=== PATIENT | female | born 1990 | race Caucasian/White ===

== ENCOUNTER 2019-01-06 20:07 | Inpatient (IN) | payer OTHER ==
[2019-01-06] MEDS ORDERED: SODIUM CHLORIDE 0.9% 1,000 ML IV STA (20:44)
[2019-01-06 21:34] LABS: Glucose,Whole Blood 99 mg/dL (75-99)
[2019-01-06 21:51] LABS: Basophils % (A) 0 %; Eosinophils # (A) 0.1 k/uL (0-0.7); Eosinophils % (A) 2 %; HCT 36.6 % (34.0-46.0); HGB 11.8 gm/dL (11.4-16.0); Lymphocytes # (A) 1.1 k/uL (1.0-4.8); Lymphocytes % (A) 14 %; MCH 29.8 pg (25.0-35.0); MCHC 32.4 g/dL (31.0-37.0); MCV 92.2 fL (80.0-100.0); Mean Platelet Volume 7.2; Monocytes # (A) 0.5 k/uL (0-1.0); Monocytes % (A) 7 %; Neutrophils # (A) 5.7 k/uL (1.3-7.7); Neutrophils % (A) 76 %; Platelet Count 217 k/uL (150-450); RBC 3.97 m/uL (3.80-5.40); RDW 13.3 % (11.5-15.5); WBC 7.5 k/uL (3.8-10.6)
[2019-01-06 21:52] LABS: ALT 17 U/L (9-52); AST 25 U/L (14-36); Acetaminophen <10.0 ug/mL; African American GFR (CKD) >90 (>60 ml/min/1.73 sqM); Albumin 4.1 g/dL (3.5-5.0); Alkaline Phosphatase 77 U/L (38-126); Anion Gap 10 mmol/L; Blood Urea Nitrogen 9 mg/dL (7-17); Carbon Dioxide 22 mmol/L (22-30); Chloride 107 mmol/L (98-107); Glucose 102 mg/dL (74-99); Salicylate <1.0 mg/dL; Sodium 139 mmol/L (137-145); Total Bilirubin 0.2 mg/dL (0.2-1.3); Total Protein 6.9 g/dL (6.3-8.2)
[2019-01-06 23:39] LABS: Appearance,Urine Clear (Clear); Bilirubin,Urine Negative (Negative); Blood,Urine Negative (Negative); Color,Urine Colorless; Glucose,Urine (UA) Negative (Negative); Ketones,Urine Negative (Negative); Leukocyte Esterase,Urine Negative (Negative); Nitrite,Urine Negative (Negative); PH, Urine 6.5 (5.0-8.0); Protein,Urine Negative (Negative); Specific Gravity,Urine 1.003 (1.001-1.035); Urobilinogen,Urine <2.0 mg/dL (<2.0)
[2019-01-07 00:12] LABS: Amphetamine Screen,Urine Not Detected (NotDetected); Barbiturate Screen,Urine Not Detected (NotDetected); Benzodiazepines Screen,Urine Not Detected (NotDetected); Cocaine Screen,Urine Not Detected (NotDetected); Methadone Screen, Urine Not Detected (NotDetected); Opiate Screen,Urine Not Detected (NotDetected); Oxycodone Screen, Urine Not Detected (NotDetected); Phencyclidine Screen,Urine Not Detected (NotDetected); Tricyclic Antidepressant,Urine Not Detected (NotDetected); Urn Cannabinoid Scrn Not Detected (NotDetected)
--- NOTE | 2019-01-07 00:31 | ED ---
General Adult HPI - General Chief complaint: Psychiatric Symptoms Stated complaint: Altered Mental Time Seen by Provider: 01/06/19 20:24 Source: patient, EMS, RN notes reviewed, old records reviewed Mode of arrival: EMS Limitations: no limitations - History of Present Illness Initial comments: 28-year-old female patient past medical history of gets affective disorder presents ED after reports of acting erratically. Patient reportedly attempting to cross the border while driving, border patrol stated that she was not acting appropriately. Patient states that she was driving from [place] to visit her family in [facility]. Unable to corroborate this story. She takes Haldol and in the injections. Patient states that she has been taking her medications appropriately. Patient stated that she is asymptomatic this time. Denies a chest pain shortness breath abdominal pain and headache, changes in vision, nausea vomiting or diarrhea. Denies other complaints. Systemic: Pt denies fatigue, fever/chills, rash. Pt denies weakness, night sweats, weight loss. Neuro: Pt denies headache, visual disturbances, syncope or pre-syncope. HEENT: Pt denies ocular discharge or irritation, otalgia, rhinorrhea, pharyngitis or notable lymphadenopathy. Cardiopulmonary: Pt denies chest pain, SOB, heart palpitations, dyspnea on exertion. Abdominal/GI: Pt denies abdominal pain, n/v/d. : Pt denies dysuria, burning w/ urination, frequency/urgency. Denies new onset urinary or bowel incontinence. MSK: Pt denies myalgia, loss of strength or function in extremities. Neuro: Pt denies new onset weakness, paresthesias. - Related Data Home Medications Medication Instructions Recorded Confirmed Haloperidol [Haldol] 2.5 mg PO DAILY 01/06/19 01/06/19 Invega Sustenna(Unknown) 1 dose IM DIRECTED 01/06/19 01/06/19 cloZAPine [Clozapine Odt] 150 mg PO BID 01/06/19 01/06/19 clonazePAM [KlonoPIN] 0.5 mg PO BID 01/06/19 01/06/19 Allergies Allergy/AdvReac Type Severity Reaction Status Date / Time clozapine [From Clozaril] Allergy Unknown Verified 01/06/19 22:55 divalproex sodium Allergy Anaphylaxis Verified 01/06/19 22:55 [From Depakote] Review of Systems ROS Statement: Those systems with pertinent positive or pertinent negative responses have been documented in the HPI. ROS Other: All systems not noted in ROS Statement are negative. Past Medical History Past Medical History: No Reported History History of Any Multi-Drug Resistant Organisms: None Reported Past Surgical History: Orthopedic Surgery Additional Past Surgical History / Comment(s): (R) hand surgery Past Psychological History: Anxiety, Schizophrenia Smoking Status: Current every day smoker Past Alcohol Use History: None Reported Past Drug Use History: None Reported General Exam - General Exam Comments Initial Comments: Constitutional: NAD, AOX3, Pt has pleasant affect. HEENT: NC/AT, trachea midline, neck supple, no lymphadenopathy. Posterior pharynx non erythematous, without exudates. External ears appear normal, without discharge. Mucous membranes moist. Eyes PERRLA, EOM intact. There is no scleral icterus. No pallor noted. Cardiopulmonary: RRR, no murmurs, rubs or gallops, no JVD noted. Lungs CTAB in anterior and posterior eisenberg. No peripheral edema. Abdominal exam: Abdomen soft and non-distended. Abdomen non-tender to palpation in all 4 quadrants. Bowel sounds active in LLQ. No hepatosplenomegaly. No ecchymosis Neuro: CN II-XII intact. No nuchal rigidity. No raccon eyes, no jurado sign, no hemotympanum. No cervical spinal tenderness. NIH 0. MSK: No posterior calf tenderness bilaterally, homans sign negative bilaterally. Posterior tibialis and radial pulse +2 bilaterally. Sensation intact in upper and lower extremities. Full active ROM in upper and lower extremities, 5/5 stregnth. Limitations: no limitations Course Vital Signs 01/06/19 01/06/19 01/07/19 20:23 23:30 00:46 Temperature 99.5 F 98.1 F 98.6 F Pulse Rate 111 H 118 H 98 Respiratory 16 16 16 Rate Blood Pressure 133/95 126/88 117/70 O2 Sat by Pulse 98 98 97 Oximetry Medical Decision Making - Medical Decision Making 28-year-old female patient past medical history of gets affective disorder presents ED after reports of acting erratically. Patient reportedly attempting to cross the border while driving, border patrol stated that she was not acting appropriately. Patient states that she was driving from [place] to visit her family in [facility]. Unable to corroborate this story. She takes Haldol and in the injections. Patient states that she has been taking her medications appropriately. Patient stated that she is asymptomatic this time. Denies a chest pain shortness breath abdominal pain and headache, changes in vision, na usea vomiting or diarrhea. Denies other complaints. Patient also still febrile. Physical exam demonstrates pathology. Neurologic exam within normal limits, NIH is 0. Laboratory investigations revealed an impressive CBC, CMP. UA negative, hCG negative. Toxicology screen negative. CT of brain did not display acute pathology. EKG done concerning for acute ischemia. Patient was evaluated by EPS who recommended admission. Cert performed by Dr. Correa. Pt will be signed out to attending physician Dr. Correa pending placement. - Lab Data Result diagrams: 01/06/19 21:20 01/06/19 21:20 Lab Results 01/06/19 01/06/19 01/06/19 Range/Units 21:20 21:20 21:20 WBC 7.5 (3.8-10.6) k/uL RBC 3.97 (3.80-5.40) m/uL Hgb 11.8 (11.4-16.0) gm/dL Hct 36.6 (34.0-46.0) % MCV 92.2 (80.0-100.0) fL MCH 29.8 (25.0-35.0) pg MCHC 32.4 (31.0-37.0) g/dL RDW 13.3 (11.5-15.5) % Plt Count 217 (150-450) k/uL Neutrophils % 76 % Lymphocytes % 14 % Monocytes % 7 % Eosinophils % 2 % Basophils % 0 % Neutrophils # 5.7 (1.3-7.7) k/uL Lymphocytes # 1.1 (1.0-4.8) k/uL Monocytes # 0.5 (0-1.0) k/uL Eosinophils # 0.1 (0-0.7) k/uL Basophils # 0.0 (0-0.2) k/uL Sodium 139 (137-145) mmol/L Potassium 4.0 (3.5-5.1) mmol/L Chloride 107 (98-107) mmol/L Carbon Dioxide 22 (22-30) mmol/L Anion Gap 10 mmol/L BUN 9 (7-17) mg/dL Creatinine 0.57 (0.52-1.04) mg/dL Est GFR (CKD-EPI)AfAm >90 (>60 ml/min/1.73 sqM) Est GFR (CKD-EPI)NonAf >90 (>60 ml/min/1.73 sqM) Glucose 102 H (74-99) mg/dL POC Glucose (mg/dL) (75-99) mg/dL POC Glu Retouching Operator ID Plasma Lactic Acid Paulie 0.9 (0.7-2.0) mmol/L Calcium 9.0 (8.4-10.2) mg/dL Total Bilirubin 0.2 (0.2-1.3) mg/dL AST 25 (14-36) U/L ALT 17 (9-52) U/L Alkaline Phosphatase 77 (38-126) U/L Total Protein 6.9 (6.3-8.2) g/dL Albumin 4.1 (3.5-5.0) g/dL Urine Color Urine Appearance (Clear) Urine pH (5.0-8.0) Ur Specific [place] (1.001-1.035) Urine Protein (Negative) Urine Glucose (UA) (Negative) Urine Ketones (Negative) Urine Blood (Negative) Urine Nitrite (Negative) Urine Bilirubin (Negative) Urine Urobilinogen (<2.0) mg/dL Ur Leukocyte Esterase (Negative) Urine HCG, Qual (Not Detectd) Salicylates <1.0 mg/dL Urine Opiates Screen (NotDetected) Ur Oxycodone Screen (NotDetected) Urine Methadone Screen (NotDetected) Ur Propoxyphene Screen (NotDetected) Acetaminophen <10.0 ug/mL Ur Barbiturates Screen (NotDetected) U Tricyclic Antidepress (NotDetected) Ur Phencyclidine Scrn (NotDetected) Ur Amphetamines Screen (NotDetected) U Methamphetamines Scrn (NotDetected) U Benzodiazepines Scrn (NotDetected) Urine Cocaine Screen (NotDetected) U Marijuana (THC) Screen (NotDetected) Acetone, Qual Negative (Negative) 01/06/19 01/06/19 01/06/19 Range/Units 21:32 23:10 23:10 WBC (3.8-10.6) k/uL RBC (3.80-5.40) m/uL Hgb (11.4-16.0) gm/dL Hct (34.0-46.0) % MCV (80.0-100.0) fL MCH (25.0-35.0) pg MCHC (31.0-37.0) g/dL RDW (11.5-15.5) % Plt Count (150-450) k/uL Neutrophils % % Lymphocytes % % Monocytes % % Eosinophils % % Basophils % % Neutrophils # (1.3-7.7) k/uL Lymphocytes # (1.0-4.8) k/uL Monocytes # (0-1.0) k/uL Eosinophils # (0-0.7) k/uL Basophils # (0-0.2) k/uL Sodium (137-145) mmol/L Potassium (3.5-5.1) mmol/L Chloride (98-107) mmol/L Carbon Dioxide (22-30) mmol/L Anion Gap mmol/L BUN (7-17) mg/dL Creatinine (0.52-1.04) mg/dL Est GFR (CKD-EPI)AfAm (>60 ml/min/1.73 sqM) Est GFR (CKD-EPI)NonAf (>60 ml/min/1.73 sqM) Glucose (74-99) mg/dL POC Glucose (mg/dL) 99 (75-99) mg/dL POC Glu Retouching Operator ID Gricelda Hernandez Plasma Lactic Acid Paulie (0.7-2.0) mmol/L Calcium (8.4-10.2) mg/dL Total Bilirubin (0.2-1.3) mg/dL AST (14-36) U/L ALT (9-52) U/L Alkaline Phosphatase (38-126) U/L Total Protein (6.3-8.2) g/dL Albumin (3.5-5.0) g/dL Urine Color Colorless Urine Appearance Clear (Clear) Urine pH 6.5 (5.0-8.0) Ur Specific [place] 1.003 (1.001-1.035) Urine Protein Negative (Negative) Urine Glucose (UA) Negative (Negative) Urine Ketones Negative (Negative) Urine Blood Negative (Negative) Urine Nitrite Negative (Negative) Urine Bilirubin Negative (Negative) Urine Urobilinogen <2.0 (<2.0) mg/dL Ur Leukocyte Esterase Negative (Negative) Urine HCG, Qual Not Detected (Not Detectd) Salicylates mg/dL Urine Opiates Screen Not Detected (NotDetected) Ur Oxycodone Screen Not Detected (NotDetected) Urine Methadone Screen Not Detected (NotDetected) Ur Propoxyphene Screen Not Detected (NotDetected) Acetaminophen ug/mL Ur Barbiturates Screen Not Detected (NotDetected) U Tricyclic Antidepress Not Detected (NotDetected) Ur Phencyclidine Scrn Not Detected (NotDetected) Ur Amphetamines Screen Not Detected (NotDetected) U Methamphetamines Scrn Not Detected (NotDetected) U Benzodiazepines Scrn Not Detected (NotDetected) Urine Cocaine Screen Not Detected (NotDetected) U Marijuana (THC) Screen Not Detected (NotDetected) Acetone, Qual (Negative) - EKG Data -: EKG Interpreted by Me (and Dr. Correa) EKG Comments: Ventricular rate 101, CO interval 120, QRS 76, QT/QTC 328/4.5. Sinus tach, negative for acute ischemia. Disposition Clinical Impression: Psychiatric disorder Disposition: ADMITTED IP TO THIS HOSP Condition: Fair Is patient prescribed a controlled substance at d/c from ED?: No Referrals: None,Stated [Primary Care Provider] - 1-2 days
--- NOTE | 2019-01-07 00:55 | CT ---
EXAM: CT Head Without Intravenous Contrast CLINICAL HISTORY: AMS. No chronic conditions TECHNIQUE: Axial computed tomography images of the head/brain without intravenous contrast. DLP is 1084.4 mGy-cm. This CT exam was performed using one or more of the following dose reduction techniques: automated exposure control, adjustment of the mA and/or kV according to patient size, and/or use of iterative reconstruction technique. Coronal and sagittal reconstructions are performed COMPARISON: No relevant prior studies available. FINDINGS: Brain: Unremarkable. No hemorrhage. No significant white matter disease. No edema. Ventricles: Unremarkable. No ventriculomegaly. Bones/joints: Unremarkable. No acute fracture. Soft tissues: Unremarkable. Sinuses: Unremarkable as visualized. No acute sinusitis. Mastoid air cells: Unremarkable as visualized. No mastoid effusion. IMPRESSION: Normal head/brain CT.
[2019-01-07] MEDS ORDERED: ACETAMINOPHEN TAB 325 MG TAB PO PRN (08:09)
[2019-01-07] MEDS ORDERED: MAG HYDROX/AL HYDROX/SIMETH 30 ML CUP PO PRN (08:09)
[2019-01-07] MEDS ORDERED: ZIPRASIDONE 20 MG VIAL IM PRN (08:09)
[2019-01-07] MEDS ORDERED: LORazepam 2 MG/ML INJ IV PRN (08:12)
[2019-01-07] MEDS: NICOTINE 14MG/24HR PATCH TRANSDERM SCH (08:17)
--- NOTE | 2019-01-07 11:25 | P.HP ---
Psychiatric H&P - . H&P Date: 01/07/19 History & Physical: Allergies Allergy/AdvReac Type Severity Reaction Status Date / Time clozapine [From Clozaril] Allergy Unknown Verified 01/07/19 06:22 divalproex sodium Allergy Anaphylaxis Verified 01/07/19 06:22 [From Depakote] Vital Signs Temp 98.4 F 01/07/19 05:55 Pulse 114 H 01/07/19 05:55 Resp 16 01/07/19 05:55 BP 126/80 01/07/19 05:55 Pulse Ox 97 01/07/19 05:55 Intake & Output 01/06/19 01/07/19 01/07/19 18:59 06:59 18:59 Weight 74.843 kg Laboratory Last Values WBC 7.5 k/uL (3.8-10.6) 01/06/19 21:20 RBC 3.97 m/uL (3.80-5.40) 01/06/19 21:20 Hgb 11.8 gm/dL (11.4-16.0) 01/06/19 21:20 Hct 36.6 % (34.0-46.0) 01/06/19 21:20 MCV 92.2 fL (80.0-100.0) 01/06/19 21:20 MCH 29.8 pg (25.0-35.0) 01/06/19 21:20 MCHC 32.4 g/dL (31.0-37.0) 01/06/19 21:20 RDW 13.3 % (11.5-15.5) 01/06/19 21:20 Plt Count 217 k/uL (150-450) 01/06/19 21:20 Neutrophils % 76 % 01/06/19 21:20 Lymphocytes % 14 % 01/06/19 21:20 Monocytes % 7 % 01/06/19 21:20 Eosinophils % 2 % 01/06/19 21:20 Basophils % 0 % 01/06/19 21:20 Neutrophils # 5.7 k/uL (1.3-7.7) 01/06/19 21:20 Lymphocytes # 1.1 k/uL (1.0-4.8) 01/06/19 21:20 Monocytes # 0.5 k/uL (0-1.0) 01/06/19 21:20 Eosinophils # 0.1 k/uL (0-0.7) 01/06/19 21:20 Basophils # 0.0 k/uL (0-0.2) 01/06/19 21:20 Sodium 139 mmol/L (137-145) 01/06/19 21:20 Potassium 4.0 mmol/L (3.5-5.1) 01/06/19 21:20 Chloride 107 mmol/L (98-107) 01/06/19 21:20 Carbon Dioxide 22 mmol/L (22-30) 01/06/19 21:20 Anion Gap 10 mmol/L 01/06/19 21:20 BUN 9 mg/dL (7-17) 01/06/19 21:20 Creatinine 0.57 mg/dL (0.52-1.04) 01/06/19 21:20 Est GFR (CKD-EPI)AfAm >90 (>60 ml/min/1.73 sqM) 01/06/19 21:20 Est GFR (CKD-EPI)NonAf >90 (>60 ml/min/1.73 sqM) 01/06/19 21:20 Glucose 102 mg/dL (74-99) H 01/06/19 21:20 POC Glucose (mg/dL) 99 mg/dL (75-99) 01/06/19 21:32 POC Glu User Interface Developer ID Gricelda Hernandez 01/06/19 21:32 Plasma Lactic Acid Paulie 0.9 mmol/L (0.7-2.0) 01/06/19 21:20 Calcium 9.0 mg/dL (8.4-10.2) 01/06/19 21:20 Total Bilirubin 0.2 mg/dL (0.2-1.3) 01/06/19 21:20 AST 25 U/L (14-36) 01/06/19 21:20 ALT 17 U/L (9-52) 01/06/19 21:20 Alkaline Phosphatase 77 U/L (38-126) 01/06/19 21:20 Total Protein 6.9 g/dL (6.3-8.2) 01/06/19 21:20 Albumin 4.1 g/dL (3.5-5.0) 01/06/19 21:20 Urine Color Colorless 01/06/19 23:10 Urine Appearance Clear (Clear) 01/06/19 23:10 Urine pH 6.5 (5.0-8.0) 01/06/19 23:10 Ur Specific [place] 1.003 (1.001-1.035) 01/06/19 23:10 Urine Protein Negative (Negative) 01/06/19 23:10 Urine Glucose (UA) Negative (Negative) 01/06/19 23:10 Urine Ketones Negative (Negative) 01/06/19 23:10 Urine Blood Negative (Negative) 01/06/19 23:10 Urine Nitrite Negative (Negative) 01/06/19 23:10 Urine Bilirubin Negative (Negative) 01/06/19 23:10 Urine Urobilinogen <2.0 mg/dL (<2.0) 01/06/19 23:10 Ur Leukocyte Esterase Negative (Negative) 01/06/19 23:10 Urine HCG, Qual Not Detected (Not Detectd) 01/06/19 23:10 Salicylates <1.0 mg/dL 01/06/19 21:20 Urine Opiates Screen Not Detected (NotDetected) 01/06/19 23:10 Ur Oxycodone Screen Not Detected (NotDetected) 01/06/19 23:10 Urine Methadone Screen Not Detected (NotDetected) 01/06/19 23:10 Ur Propoxyphene Screen Not Detected (NotDetected) 01/06/19 23:10 Acetaminophen <10.0 ug/mL 01/06/19 21:20 Ur Barbiturates Screen Not Detected (NotDetected) 01/06/19 23:10 U Tricyclic Antidepress Not Detected (NotDetected) 01/06/19 23:10 Ur Phencyclidine Scrn Not Detected (NotDetected) 01/06/19 23:10 Ur Amphetamines Screen Not Detected (NotDetected) 01/06/19 23:10 U Methamphetamines Scrn Not Detected (NotDetected) 01/06/19 23:10 U Benzodiazepines Scrn Not Detected (NotDetected) 01/06/19 23:10 Urine Cocaine Screen Not Detected (NotDetected) 01/06/19 23:10 U Marijuana (THC) Screen Not Detected (NotDetected) 01/06/19 23:10 Acetone, Qual Negative (Negative) 01/06/19 21:20 01/07/19 11:09 Identification: Patient is a 28-year-old female who [place] return to her parents home in [place]. Patient was acting bizarrely was brought to the emergency room. 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 Patient states that she went to [place] where she was walking around naked, she states because she had to leave immediately because people were following her. Patient states she was admitted to a hospital there, per her father [facility] from November 05 2 12/24/2018. Patient was then discharged to a residential crisis center after her release on December 24, she was living there and then taken to his psychiatric emergency Center on January 01 due to refusal to take oral medications and was kept until January 02 when she was released to return to the residential crisis center. Patient however decided to return home and began driving from [place] to [place]. Per the patient's father she was initially doing well following directions stopping in motels but by was becoming more disorganized. Not stopping at night was not answering her phone and kept driving. Patient was discharged from [facility] on Clozaril patient thinks it was at 300 mg, Haldol 5 mg as well as Invega long-acting injectable unknown dosage unknown last time it was given. Patient is unaware of when she received the last injection and states that she initially was taking her medication, but states that she was told she was ALLERGIC to Clozaril and so stopped taking that and has not been taking her meds for several days now because she left him in a hotel room. Patient states that she doesn't need the medications, she is feeling paranoid currently but would not elaborate further other than to state that people follow her. She states that she was brought here because it took her to long [place] Patient denies any current suicidal or homicidal ideation and denies any auditory or visual hallucinations. She denies any thought insertion or broadcasting. Patient denies any symptoms of depression or adilia currently or in the past. Patient denies any suicide attempts in the past. Patient states that she was initially admitted for the first time in August 2017 and was kept for 5-1/2 months and her father also confirms this. Patient states that at that time she had returned to [place] from [place] where she had been living because she came home to get her passport due to people following her here and wanted to go to [place] neutral [place]. Patient after release from the hospital there stayed in [place] until June 2018 when she left for [place] again due to people following her and feeling paranoid. Patient states at that time she was on Clozaril and Risperdal injectable. Patient is unclear as to how long she continued medication but does not think she took any when she left for [place]. Past Psychiatric History: Patient states that her initial admission and initial psychiatric treatment began in August 2017 when she was admitted for 5-1/2 months at [facility] and later transferred to [facility] was discharged on Clozaril and Risperdal consta. Patient was most recently at [facility] in [facility] from October to December 2018 and was living in a residential crisis center after her discharge and was being treated with Clozaril, Haldol and long-acting injectable Invega. Patient states her dose of Clozaril is 300 mg a day and states that she is now ALLERGIC to it, Haldol 5 mg a day and an unknown dosage of Invega long-acting and an unknown time of last injection. Past Medical/Surgical History: Patient denies any medical problems states that she had hand surgery in the past. Family History: Patient states there is no history of psychiatric disorders in the family no substance or alcohol abuse and no completed suicides Social History: Patient states that she was born and raised in [place] her parents are alive and she has one sister. She states that she completed high school and went to [employer] in [place] and graduated in 2013 with a bachelors degree in math and economics. 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 Patient lived in [place] after graduating from college in 2013 until she came home in 2018 as stated above to obtain her passport. 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 Patient has never been has no children and denies any abuse history. Substance Use History: Patient denies any alcohol or substance abuse currently or in the past. Legal History: Patient denies any legal history Mental status: Appearance/Attitude: Patient is dressed in a hospital gown, makes eye contact, has a slightly stiff posture and was cooperative Behavior: Patient did not display any psychomotor agitation however there was some evidence of psychomotor retardation Speech/Language: Patient's speech was slightly slowed, of normal volume and she was coherent Thought Process: Patient was slow to respond to questions, her answers were goal directed and at times she stated she did not recall Thought Content: Patient denied any auditory or visual hallucinations and stated that she was paranoid that people were following her and the reason that she left [place] to come home. Patient denies that she is currently feeling paranoid and states that she never said that. Patient denies any thought insertion or thought broadcasting. Patient denies any depressive symptoms currently and no manic symptoms currently. Patient states that she was stopping though tells and sleeping but left her medication in a hotel room and had not been taking it for the last several days. Patient states that she has been eating. Suicidal/Homicidal Ideation: Patient denies any current suicidal or homicidal ideation Sensorium/Cognition: Patient is alert and oriented to person, place and time, her recent and remote memory are grossly intact Mood/Affect: Patient's mood is guarded and her affect is flat Insight/Judgment: Patient's insight and judgment are impaired Intellectual Functioning: Patient's intellectual functioning appears average Strength/Weakness: Patient has supportive parents/lack of compliance with medication and follow-up care Assessment: Patient's father was contacted last evening by the EPS nurse and provided information that the patient mostly confirmed. Patient reports a history of paranoia that is caused her to leave here and return to [place] as well as leave [place] and returned here due to being followed, wanting to get her passport to go to a neutral country and does not feel that she requires medication. Patient states that she is ALLERGIC to Clozaril and has not been taking it and left her Haldol in a hotel room. Patient has been treated twice in the past on inpatient admissions for extended periods of time with a brief follow-up after her discharges. 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 Patient left [place] where she was in a residential crisis center to drive home to [place], initially per her father sounding good on the phone however by of this week was beginning to decompensate. Patient presents currently and reports that she was feeling paranoid now but then denied that she said that to me later in the interview but denies any other symptomatology. Patient does not endorse any mood symptoms at this time and states that she has never felt depressed and does not endorse any prior manic symptoms. Admission Diagnosis: Schizophrenia, rule out bipolar type I disorder Plan: Patient is admitted on an involuntary basis and a second certification was completed. Patient was placed on routine observation in group and activity therapy were ordered. Patient was also ordered routine laboratory studies as well as a medical consultation. Patient is refusing medication at this time and only when necessary medications ordered. Patient requires hospitalization to stabilize on medication. 01/07/19 11:18
--- NOTE | 2019-01-07 14:01 | P.HPMEDMHU ---
History of Present Illness H&P Date: 01/07/19 Chief Complaint: Consult for HPI The patient is a 28-year-old female is admitted to acute inpatient psychiatry unit for acute psychosis with underlying schizoaffective disorder with possible bipolar type I. Apparently the patient was brought in by [employer] after the patient was noted to be displaying bizarre behavior. Apparently the patient has been noncompliant with oral medical psychotropics and has had a few inpatient hospitalizations most recently at [facility] where she was discharged mid December and decided to return home to [facility] where her parents are. The patient was discharged on Clozaril, Haldol and Ingega and has not been medically compliant. On her trip back to [place] the patient was supposed to stop at motels booked by her parents but became increasingly disorganized and did not stop at the predetermined stops/motels and subsequently refused to lease picker her phone while her parents are attempting to contact her. Review of Systems Pertinent positives per HPI all other review of systems otherwise negative Past Medical History Past Medical History: No Reported History History of Any Multi-Drug Resistant Organisms: None Reported Past Surgical History: Orthopedic Surgery Additional Past Surgical History / Comment(s): (R) hand surgery Past Psychological History: Anxiety, Schizophrenia Smoking Status: Current every day smoker Past Alcohol Use History: None Reported Past Drug Use History: None Reported Medications and Allergies Home Medications Medication Instructions Recorded Confirmed Type Haloperidol [Haldol] 2.5 mg PO DAILY 01/06/19 01/06/19 History Invega Sustenna(Unknown) 1 dose IM DIRECTED 01/06/19 01/06/19 History cloZAPine [Clozapine Odt] 150 mg PO BID 01/06/19 01/06/19 History clonazePAM [KlonoPIN] 0.5 mg PO BID 01/06/19 01/06/19 History Allergies Allergy/AdvReac Type Severity Reaction Status Date / Time clozapine [From Clozaril] Allergy Unknown Verified 01/07/19 06:22 divalproex sodium Allergy Anaphylaxis Verified 01/07/19 06:22 [From Depakote] Physical Exam Vitals: Vital Signs Temp Pulse Pulse Resp BP BP Pulse Ox 01/07/19 05:55 98.4 F 114 H 16 126/80 97 01/07/19 05:32 98.6 F 101 H 19 116/82 99 01/07/19 00:46 98.6 F 98 16 117/70 97 01/06/19 23:30 98.1 F 118 H 16 126/88 98 01/06/19 20:23 99.5 F 111 H 16 133/95 98 Intake and Output 01/06/19 01/07/19 01/07/19 22:59 06:59 14:59 Other: Weight 74.843 kg Constitutional: No acute distress, somnolent but arousable, cooperative Eyes: Anicteric sclerae, moist conjunctiva, no lid-lag, PERRLA ENMT: NC/AT,Oropharynx clear, no erythema, exudates Neck:Supple, FROM, no masses, or JVD, No carotid bruits; No thyromegaly Lungs: Clear to auscultation, Clear to percussion, Normal respiratory effort, no accessory muscle use Cardiovascular: Heart regular in rate and rhythm, No murmurs, gallops, or rubs no peripheral edema Abdominal: Soft Nontender, nom distended, no guarding, no rebound or rigidity, Normoactive bowel sounds No hepatomegaly, No splenomegaly, No palpable mass No abdominal wall hernia noted Skin: Normal temperature, tone, texture, turgor, No induration No subcutaneous nodules, No rash, lesions, No ulcers Extremities:No digital cyanosis No clubbing, Pedal pulses intact and symmetrical Radial pulses intact and symmetrical Normal gait and station, No calf tenderness Psychiatric: Slowed speech, flat affect, insight and judgment are impaired, slow to answer to questions, denies any suicidal or homicidal ideation, but appears to have thought blocking Neuro: Muscles Strength 5/5 in all 4 extremities, Sensation to light touch grossly present throughout, Cranial nerves II-XII grossly intact. No focal sensory deficits Cranial Nerve Examination - Cranial Nerves Cranial Nerve II- Optic: Intact Cranial Nerve III- Oculomotor: Intact Cranial Nerve IV- Trochlear: Intact Cranial Nerve V- Trigeminal: Intact Cranial Nerve - Abducens: Intact Cranial Nerve VII- Facial: Intact Cranial Nerve VIII- Auditory: Intact Cranial Nerve IX- Glossopharyngeal: Intact Cranial Nerve X- Vagus: Intact Cranial Nerve XI- Accessory: Intact Cranial Nerve XII- Hypoglossal: Intact Results CBC & Chem 7: 01/06/19 21:20 01/06/19 21:20 Labs: Abnormal Lab Results - Last 24 Hours (Table) 01/06/19 Range/Units 21:20 Glucose 102 H (74-99) mg/dL Assessment and Plan (1) Acute psychosis Current Visit: Yes Status: Acute Code(s): F23 - BRIEF PSYCHOTIC DISORDER SNOMED Code(s): 02209875 (2) Schizoaffective disorder Current Visit: Yes Status: Acute Code(s): F25.9 - SCHIZOAFFECTIVE DISORDER, UNSPECIFIED SNOMED Code(s): 00743202 Plan: The patient is admitted to the acute inpatient psychiatry team under Dr. Fernandes will defer all psychotropic recommendations and therapies to the primary team with plans for ongoing cognitive behavioral therapy. Medically the patient denies any chronic conditions or somatic complaints. Her labs are unremarkable, UDS is negative. She is noted to have some tachycardia of 101 on EKG but denies any chest pain at this time. Appreciate opportunity to be involved in ongoing care of this patient, for further questions do not hesitate to contact the [facility] inpatient team.
[2019-01-08 02:24] VITALS: RESP 14
[2019-01-08] MEDS: NICOTINE 14MG/24HR PATCH TRANSDERM SCH (09:24)
--- NOTE | 2019-01-08 11:24 | P.PN ---
Progress Note - Text Progress Note Date: 01/08/19 Interval History: Patient is a 28-year-old female who was seen today, she states that she is been sleeping well, patient was found in her room and was sleeping. She states that she has not been attending any groups. She states that she is eating. She reports that she is not hearing voices and is not feeling paranoid. She states that she is ALLERGIC to Clozaril and is unsure of when her injection of Invega was given last. Patient denies that she is hearing voices and denies feeling paranoid. Mental Status: Appearance/Attitude: Patient is dressed in a hospital gown her grooming is fair, she makes eye contact and is cooperative Behavior: Patient does not exhibit any psychomotor agitation or retardation, Speech/Language: Patient's speech is of normal volume and rhythm and she is coherent Thought Process: Patient has some evidence of thought blocking Thought Content: Patient denies any auditory or visual hallucinations and no delusions or paranoid ideation or elicited. Patient states that she has been sleeping and eating but has not been attending groups or activities. She states that she doesn't feel suspicious or paranoid at this time. Suicidal/Homicidal Ideation: Patient denies any current suicidal or homicidal ideation Sensorium/Cognition: Patient is alert and oriented to person, place and situation Mood/Affect: Patient's mood is restricted and her affect is blunted Insight/Judgment: Patient's insight and judgment are fair Assessment: Patient was seen today and she reports that she didn't sleep well and is feeling more rested now that she's been able to sleep. Patient states that when she was released from the crisis center in [place] she was sent to a homeless senior living not back to the residential facility. Patient states she is unsure of when her next injection of Invega is due and is agreeable to take this. She states that she is ALLERGIC to Clozaril because it caused her difficulty swallowing. She reports that she was on Invega, Clozaril and Haldol when she left [place]. Patient has not been attending groups or activities. Plan: Patient is currently not receiving medication and states that she is agreeable to receive and Invega long-acting injectable and refuses Clozaril. Will have patient sign a release of information to obtain information from her treatment facilities in [place] regarding when her last injection of Invega was and what the dose was. Patient was encouraged to attend groups and activities. She declines any medication for side effects and states that her swallowing is better and she doesn't have as much saliva in her mouth. Patient continues to require hospitalization.
[2019-01-08] MEDS: LORazepam 1 MG TAB PO PRN (15:44)
[2019-01-09] MEDS: LORazepam 1 MG TAB PO PRN ×2 (06:35→15:32)
[2019-01-09] MEDS: NICOTINE 14MG/24HR PATCH TRANSDERM SCH (08:33)
[2019-01-09 12:57] LABS: Hemoglobin A1C 5.3 % (4.0-6.0)
--- NOTE | 2019-01-09 16:00 | P.PN ---
Progress Note - Text Progress Note Date: 01/09/19 Interval History: Patient is a 28-year-old female who was seen today, she states that she feels she is ready for discharge and doesn't understand why she was admitted to the hospital. Patient begins to cry when she states that states that she doesn[place]. Patient states she wishes to be compliant with her medication. Patient also stated that she thinks she can drive herself home when she is discharged. Patient states that she's been sleeping and eating well and has not been attending groups or activities. Mental Status: Appearance/Attitude: Patient is dressed in a hospital gown, grooming is poor, makes eye contact and was cooperative Behavior: Patient does not display any psychomotor agitation or retardation. Patient is not having as much difficulty swallowing saliva she was on our initial meeting Speech/Language: Patient's speech is spontaneous, normal volume and rhythm and she is coherent Thought Process: Patient is goal-directed there is no evidence of loose associations or flight of ideas Thought Content: Patient denies any auditory or visual hallucinations and no paranoid or delusional ideation is elicited. Patient does not endorse any symptoms currently stating that she sleeping and eating is not hearing voices and is not feeling paranoid. She became tearful and states she doesn't understand why she was stopped them brought to the hospital. Patient states that she wishes to be compliant with her medication but declines additional oral medication. Suicidal/Homicidal Ideation: Patient denies any current suicidal or homicidal ideation Sensorium/Cognition: Patient is alert and oriented to person, place, and time and her recent and remote memory are grossly intact Mood/Affect: Patient's mood is restricted and her affect is slightly blunted Insight/Judgment: Patient's insight and judgment are impaired Assessment: A release of information was signed for [facility] where the patient had been staying after her release from the hospital in [facility]. I contacted them and was told that the patient had been admitted to them on Clozaril 150 twice a day which was discontinued 7 days later. She was also on Haldol 2.5 mg at bedtime and Klonopin 0.5 mg twice a day which was also discontinued after 1 week. Patient was not compliant with Clozaril and this was the reason for it being discontinued. Patient was due for an injection of Invega on January 13, her prior dose had been 156 mg given on December 23. Patient states that she is ready to leave the hospital, doesn't understand what she was admitted is agreeable to Invega sustain but is not agreeable to any oral medications at this time. Patient denies having any symptoms and she is not noted to be responding to internal stimuli and there have been no bizarre behaviors noted on the unit, patient has not been attending groups or activities. Plan: patient's next injection of Invega cisterna is due on January 13 and will give 234 mg at that time. Patient and I discussed that her parents will be picking her up when she is ready for discharge and taking her back to [place]. Patient continues to require hospitalization to stabilize her mood, psychotic symptoms
[2019-01-10] MEDS: LORazepam 1 MG TAB PO PRN ×2 (05:06→13:44)
[2019-01-10] MEDS: NICOTINE 14MG/24HR PATCH TRANSDERM SCH (08:35)
--- NOTE | 2019-01-10 14:58 | P.PN ---
Progress Note - Text Progress Note Date: 01/10/19 Interval History: Patient is a 28-year-old female who was seen today, she stated that she deferred her hearing, and had been requesting to restart the Haldol. When I asked her why she wanted to restart the Haldol she could not really give me any information. She denied that she is hearing voices feeling paranoid or having visual hallucinations. Patient states that she is been sleeping well and has been eating. Mental Status: Appearance/Attitude: Patient remains dressed in a hospital gown, her grooming is fair to poor she makes eye contact and is cooperative Behavior: Patient does not exhibit any psychomotor agitation or retardation Speech/Language: Patient's speech is more spontaneous, normal volume and rhythm and she is coherent Thought Process: Patient is goal-directed and more elaborative today is no evidence of tangential or racing thoughts Thought Content: Patient denies auditory or visual hallucinations and denies any paranoid or delusional ideation. Patient states that she is sleeping and eating well. Patient states that she is IV any trouble swallowing and has less saliva in her mouth that she did on the first day of admission. Suicidal/Homicidal Ideation: Patient denies any current suicidal or homicidal ideation Sensorium/Cognition: Patient is alert and oriented to person, place and time and her recent and remote memory are grossly intact Mood/Affect: Patient's mood was pleasant, she becomes tearful when she discusses being admitted and doesn't understand [place] and her affect remains slightly blunted' patient complained of some anxiety at times Insight/Judgment: Patient's insight and judgment are fair Assessment: Patient is sleeping and eating, she is not attending groups or activities or grooming is fair to poor. Patient has not exhibited any bizarre behavior on the unit and denies any psychotic symptoms at this time. Patient does for her hearing and is willing to continue with medication. Patient is reporting feeling anxious at times and stated that she has been requesting Ativan for that Plan: Patient and I discussed giving her next injection of Invega sustenna 234 mg on January 12, I discussed with the patient that I would not add oral Haldol and if she felt that she needed more medication I could add oral Invega but she is not exhibiting any symptoms nor is she reporting any symptoms that would require additional antipsychotic medication at this time. Patient and I discussed Vistaril 25 mg 4 times a day as needed for her anxiety rather than her taking Ativan. She was agreeable to this and I reviewed the use and side effects with her. Patient was agreeable to this plan, to the plan of discharging her to her parents this January 13 to return to [place].
[2019-01-10] MEDS: NICOTINE POLACRILEX 2 MG GUM BUCCAL PRN (17:03)
[2019-01-10] MEDS: hydrOXYzine PAMOATE 25 MG CAP PO PRN (17:04)
[2019-01-11] MEDS: hydrOXYzine PAMOATE 25 MG CAP PO PRN ×2 (06:42→14:15)
--- NOTE | 2019-01-11 10:41 | P.PN ---
Progress Note - Text Progress Note Date: 01/11/19 Interval History: Patient is a 28-year-old female who was seen today. She reports that the Vistaril has been helpful for her anxiety. She states that she is eating and sleeping well. Patient reports that she attends some of the groups and activities. She states that she is not hearing voices, and not feeling paranoid. Mental Status: Appearance/Attitude: Patient is dressed in a hospital gown her grooming is fair, she makes eye contact and was cooperative. Behavior: Patient does not exhibit any psychomotor agitation or retardation. Speech/Language: Patient's speech is spontaneous, normal volume and rhythm and she is coherent Thought Process: Patient is goal-directed there is no evidence of loose association or flight of ideas Thought Content: Patient denies any auditory or visual hallucinations and no paranoid or delusional ideation is elicited. Patient reports no difficulty swal lowing and no excessive production of saliva. Patient states that she is eating and sleeping well. Suicidal/Homicidal Ideation: Patient denies any current suicidal or homicidal ideation Sensorium/Cognition: Patient is alert and oriented to person, place and time and her remote memory are grossly intact Mood/Affect: Patient's mood is rashid and her affect is less blunted Insight/Judgment: Patient's insight and judgment are fair Assessment: Patient has not exhibited any bizarre behavior on the unit, is not reporting any suicidal or homicidal ideation and has been compliant in attending some of the groups and activities. Patient reports good results using Vistaril 25 mg for her anxiety. Patient is sleeping and eating well. Plan: Patient will receive Invega sustenna 234 mg tomorrow to target her psychotic symptoms and will continue with the Vistaril 25 mg as needed to target her anxiety symptoms. Patient family will be picking her up to return her to their home on Wednesday, January 13. Patient is agreeable with the plan for medication and a follow-up appointment has been arranged for her aftercare.
[2019-01-11] MEDS: LORazepam 1 MG TAB PO PRN ×2 (12:36→20:26)
[2019-01-11] MEDS: NICOTINE POLACRILEX 2 MG GUM BUCCAL PRN ×2 (14:15→20:54)
[2019-01-12] MEDS: hydrOXYzine PAMOATE 25 MG CAP PO PRN ×2 (08:07→18:13)
[2019-01-12] MEDS: NICOTINE POLACRILEX 2 MG GUM BUCCAL PRN ×2 (09:48→18:13)
[2019-01-12] MEDS ORDERED: PALIPERIDONE IM 234 MG/1.5 ML SYG IM STA (10:47)
--- NOTE | 2019-01-12 12:08 | P.PN ---
Progress Note - Text Progress Note Date: 01/12/19 Interval History: Patient is a 28-year-old female who was seen today and she reports that she slept well last night and has been attending groups today. She states that the Vistaril is been helpful when she's been feeling anxious. She denies having any paranoid ideation, auditory hallucinations or visual hallucinations. Patient states she is not feeling depressed and has no suicidal thoughts. Patient states that she is feeling better as she is not having any difficulty swallowing or difficulties with excessive saliva production. Patient reports no side effects from her current medications. Mental Status: Appearance/Attitude: Patient is dressed in a hospital gown, her grooming is fair she makes eye contact and is cooperative Behavior: Patient does not display any psychomotor agitation or retardation Speech/Language: Patient's speech is spontaneous of normal volume and rhythm and she is coherent Thought Process: Patient is goal-directed there is no evidence of loose association or flight of ideas Thought Content: Patient denies any auditory or visual hallucinations and no par anoid or delusional ideation is elicited. Patient states that she's been sleeping and eating well. She reports no longer feeling anxious and states the Vistaril is been helpful. Patient states that she's been attending groups and activities. Suicidal/Homicidal Ideation: Patient denies any current suicidal or homicidal ideation Sensorium/Cognition: Patient is alert and oriented to person, place and time and her recent and remote memory are grossly intact Mood/Affect: Patient's mood is rashid and her affect is appropriate to her mood Insight/Judgment: Patient's insight and judgment are fair Assessment: Patient has been cooperative on the unit there've been no episodes of bizarre behavior. She reports sleeping and eating well and states that she is not having any paranoid ideation. Patient has been attending some groups and activities. Patient reports no side effects from the medication and states that the Vistaril is been helpful for her anxiety. Plan: Patient will receive Invega Sustenna 234 mg IM today, continue on Vistaril 25 mg as needed 3 times a day for her anxiety. Patient's parents will be here tomorrow to take patient home and she will be discharged with follow-up in [facility]. Patient was encouraged to be compliant with medication after discharge from the hospital, patient was agreeable with this plan.
[2019-01-13 06:54] VITALS: BP 82/48; PULSE 75; TEMP 97.7
[2019-01-13] MEDS: hydrOXYzine PAMOATE 25 MG CAP PO PRN (08:03)
--- NOTE | 2019-01-13 08:39 | P.DS ---
Providers Date of admission: 01/07/19 05:22 Expected date of discharge: 01/13/19 Attending physician: Kathryn Booker MD Consults: 01/07/19 08:09 Consult Physician Routine Consulting Provider: Abraham Duke Consult Reason/Comments: H&P for menal health consult Do you want consulting provider notified?: Already Contacted Primary care physician: Stated None Hospital Course: Discharge Diagnosis: Schizophrenia Reason for Admission: Patient is a 28-year-old female who [place] to return to her parents home in [facility]. Patient was acting bizarrely was brought to the emergency room. 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 Patient states that she went to [place] where she was walking around naked, she states because she had to leave immediately because people were following her. Patient states she was admitted to a hospital there, per her father [facility] from November 05 2 12/24/2018. Patient was then discharged to a residential crisis center after her release on December 24, she was living there and then taken to his psychiatric emergency Center on January 01 due to refusal to take oral medications and was kept until January 02 when she was released to return to the residential crisis center. Patient however decided to return home and began driving from [place] to [facility]. Per the patient's father she was initially doing well following directions stopping in motels but by was becoming more disorganized. Not stopping at night was not answering her phone and kept driving. Patient was discharged from [facility] on Clozaril patient thinks it was at 300 mg, Haldol 5 mg as well as Invega long-acting injectable unknown dosage unknown last time it was given. Patient is unaware of when she received the last injection and states that she initially was taking her medication, but states that she was told she was ALLERGIC to Clozaril and so stopped taking that and has not been taking her meds for several days now because she left him in a hotel room. Patient states that she doesn't need the medications, she is feeling paranoid currently but would not elaborate further other than to state that people follow her. She states that she was brought here because it took her to long [place] Patient denies any current suicidal or homicidal ideation and denies any auditory or visual hallucinations. She denies any thought insertion or broadcasting. Patient denies any symptoms of depression or adilia currently or in the past. Patient denies any suicide attempts in the past. Patient states that she was initially admitted for the first time in August 2017 and was kept for 5-1/2 months and her father also confirms this. Patient states that at that time she had returned to [place] from [place] where she had been living because she came home to get her passport due to people following her here and wanted to go to [place]. Patient after release from the hospital there stayed in [place] until June 2018 when she left for [place] again due to people following her and feeling paranoid. Patient states at that time she was on Clozaril and Risperdal injectable. Patient is unclear as to how long she continued medication but does not think she took any when she left for [place]. Mental status on Admission: Appearance/Attitude: Patient is dressed in a hospital gown, makes eye contact, has a slightly stiff posture and was cooperative Behavior: Patient did not display any psychomotor agitation however there was some evidence of psychomotor retardation Speech/Language: Patient's speech was slightly slowed, of normal volume and she was coherent Thought Process: Patient was slow to respond to questions, her answers were goal directed and at times she stated she did not recall Thought Content: Patient denied any auditory or visual hallucinations and stated that she was paranoid that people were following her and the reason that she left [place] to come home. Patient denies that she is currently feeling paranoid and states that she never said that. Patient denies any thought insertion or thought broadcasting. Patient denies any depressive symptoms currently and no manic symptoms currently. Patient states that she was stopping though tells and sleeping but left her medication in a hotel room and had not been taking it for the last several days. Patient states that she has been eating. Suicidal/Homicidal Ideation: Patient denies any current suicidal or homicidal ideation Sensorium/Cognition: Patient is alert and oriented to person, place and time, her recent and remote memory are grossly intact Mood/Affect: Patient's mood is guarded and her affect is flat Insight/Judgment: Patient's insight and judgment are impaired Hospital Course: Patient was admitted on an involuntary basis, the second certification was completed, the patient deferred her hearing. Patient was placed on routine observation and group and activity therapy were ordered. Patient also had routine laboratory studies as well as a medical consultation ordered. Patient signed a release of information to confirm her medications at the [facility] in [facility]. It was confirmed there that the patient had received Invega long-acting injectable and was due on January 13. Patient had been discontinued from taking Clozaril on December 28 as well as Klonopin at that time. Patient had also been continued on Haldol 2.5 mg twice a day at the [facility]. Patient on the inpatient unit was initially noted to be parkinsonian but declined any medication initially for side effects or for any other reason. Patient did not exhibit any bizarre behavior, denied that she was having auditory hallucinations or feeling paranoid. Patient slowly improved on the unit and her parkinsonian side effects decreased and eventually were not noted. Patient was agreeable to continuing on Invega long-acting injectable and received 234 mg IM on January 12. Patient was not exhibiting any psychotic symptoms and no suicidal or homicidal ideation or behaviors were noted or reported. Patient was sleeping and eating well on the unit and was attending groups and activities. Patient reported no side effects from having received a long-acting injectable on the January. Patient complained of some anxiety while on the unit and was agreeable to using Vistaril 25 mg as needed and states that she took it twice a day with good effect. Patient's father was coming from [facility] to take the patient back to their home. Patient was agreeable with the plan and agreeable to continue on Invega long-acting injectable. Allergies clozapine [From Clozaril] Allergy (Verified 01/07/19 06:22) Unknown UNSURE IF PATIENT ALLERGIC. IS CURRENTLY PRESCRIBED MEDICATION. divalproex sodium [From Depakote] Allergy (Verified 01/07/19 06:22) Anaphylaxis Laboratory Last Values WBC 7.5 k/uL (3.8-10.6) 01/06/19 21:20 RBC 3.97 m/uL (3.80-5.40) 01/06/19 21:20 Hgb 11.8 gm/dL (11.4-16.0) 01/06/19 21:20 Hct 36.6 % (34.0-46.0) 01/06/19 21:20 MCV 92.2 fL (80.0-100.0) 01/06/19 21:20 MCH 29.8 pg (25.0-35.0) 01/06/19 21:20 MCHC 32.4 g/dL (31.0-37.0) 01/06/19 21:20 RDW 13.3 % (11.5-15.5) 01/06/19 21:20 Plt Count 217 k/uL (150-450) 01/06/19 21:20 Neutrophils % 76 % 01/06/19 21:20 Lymphocytes % 14 % 01/06/19 21:20 Monocytes % 7 % 01/06/19 21:20 Eosinophils % 2 % 01/06/19 21:20 Basophils % 0 % 01/06/19 21:20 Neutrophils # 5.7 k/uL (1.3-7.7) 01/06/19 21:20 Lymphocytes # 1.1 k/uL (1.0-4.8) 01/06/19 21:20 Monocytes # 0.5 k/uL (0-1.0) 01/06/19 21:20 Eosinophils # 0.1 k/uL (0-0.7) 01/06/19 21:20 Basophils # 0.0 k/uL (0-0.2) 01/06/19 21:20 Sodium 139 mmol/L (137-145) 01/06/19 21:20 Potassium 4.0 mmol/L (3.5-5.1) 01/06/19 21:20 Chloride 107 mmol/L (98-107) 01/06/19 21:20 Carbon Dioxide 22 mmol/L (22-30) 01/06/19 21:20 Anion Gap 10 mmol/L 01/06/19 21:20 BUN 9 mg/dL (7-17) 01/06/19 21:20 Creatinine 0.57 mg/dL (0.52-1.04) 01/06/19 21:20 Est GFR (CKD-EPI)AfAm >90 (>60 ml/min/1.73 sqM) 01/06/19 21:20 Est GFR (CKD-EPI)NonAf >90 (>60 ml/min/1.73 sqM) 01/06/19 21:20 Glucose 102 mg/dL (74-99) H 01/06/19 21:20 POC Glucose (mg/dL) 99 mg/dL (75-99) 01/06/19 21:32 POC Glu Gage Maker ID Gricelda Hernandez 01/06/19 21:[address] Glu mg/dL 105 01/08/19 08:38 Hemoglobin A1c 5.3 % (4.0-6.0) 01/08/19 08:38 Plasma Lactic Acid Paulie 0.9 mmol/L (0.7-2.0) 01/06/19 21:20 Calcium 9.0 mg/dL (8.4-10.2) 01/06/19 21:20 Total Bilirubin 0.2 mg/dL (0.2-1.3) 01/06/19 21:20 AST 25 U/L (14-36) 01/06/19 21:20 ALT 17 U/L (9-52) 01/06/19 21:20 Alkaline Phosphatase 77 U/L (38-126) 01/06/19 21:20 Total Protein 6.9 g/dL (6.3-8.2) 01/06/19 21:20 Albumin 4.1 g/dL (3.5-5.0) 01/06/19 21:20 Triglycerides 75 mg/dL (<150) 01/08/19 08:38 Cholesterol 146 mg/dL (<200) 01/08/19 08:38 LDL Cholesterol, Calc 81 mg/dL (0-99) 01/08/19 08:38 HDL Cholesterol 50 mg/dL (40-60) 01/08/19 08:38 TSH 1.920 mIU/L (0.465-4.680) 01/08/19 08:38 Urine Color Colorless 01/06/19 23:10 Urine Appearance Clear (Clear) 01/06/19 23:10 Urine pH 6.5 (5.0-8.0) 01/06/19 23:10 Ur Specific [place] 1.003 (1.001-1.035) 01/06/19 23:10 Urine Protein Negative (Negative) 01/06/19 23:10 Urine Glucose (UA) Negative (Negative) 01/06/19 23:10 Urine Ketones Negative (Negative) 01/06/19 23:10 Urine Blood Negative (Negative) 01/06/19 23:10 Urine Nitrite Negative (Negative) 01/06/19 23:10 Urine Bilirubin Negative (Negative) 01/06/19 23:10 Urine Urobilinogen <2.0 mg/dL (<2.0) 01/06/19 23:10 Ur Leukocyte Esterase Negative (Negative) 01/06/19 23:10 Urine HCG, Qual Not Detected (Not Detectd) 01/06/19 23:10 Salicylates <1.0 mg/dL 01/06/19 21:20 Urine Opiates Screen Not Detected (NotDetected) 01/06/19 23:10 Ur Oxycodone Screen Not Detected (NotDetected) 01/06/19 23:10 Urine Methadone Screen Not Detected (NotDetected) 01/06/19 23:10 Ur Propoxyphene Screen Not Detected (NotDetected) 01/06/19 23:10 Acetaminophen <10.0 ug/mL 01/06/19 21:20 Ur Barbiturates Screen Not Detected (NotDetected) 01/06/19 23:10 U Tricyclic Antidepress Not Detected (NotDetected) 01/06/19 23:10 Ur Phencyclidine Scrn Not Detected (NotDetected) 01/06/19 23:10 Ur Amphetamines Screen Not Detected (NotDetected) 01/06/19 23:10 U Methamphetamines Scrn Not Detected (NotDetected) 01/06/19 23:10 U Benzodiazepines Scrn Not Detected (NotDetected) 01/06/19 23:10 Urine Cocaine Screen Not Detected (NotDetected) 01/06/19 23:10 U Marijuana (THC) Screen Not Detected (NotDetected) 01/06/19 23:10 Acetone, Qual Negative (Negative) 01/06/19 21:20 Discharge Mental Status: Appearance/Attitude: Patient is dressed in casual clothes, grooming is appropriate, eye contact is good and she is cooperative Behavior: Patient did not exhibit any psychomotor agitation or retardation. Speech/Language: Patient's speech was spontaneous of normal volume and rhythm and she is coherent Thought Process: Patient is goal-directed there is no evidence of loose association or flight of ideas Thought Content: Patient denies any auditory or visual hallucinations and no paranoid or delusional ideation is elicited. Patient reports that she is feeling well, reports no side effects from the medication and none are noted on exam. Patient is sleeping and eating well. She reports that the Vistaril has been beneficial in targeting her anxiety. Suicidal/Homicidal Ideation: Patient denied any current suicidal or homicidal ideation Sensorium/Cognition: Patient is alert and oriented to person, place and time and her recent and remote memory are grossly intact Mood/Affect: Patient's mood is pleasant and her affect is slightly blunted Insight/Judgment: Patient's insight and judgment are fair Risk Assessment: Patient's risk for readmission is moderate to the patient stop her medications and not comply with follow-up care Discharge Plan: Patient will be taken back to [facility] by her father, she will continue on Invega Sustenna 234mg IM due on February 09 and Vistaril 25 mg twice a day as needed for anxiety and prescriptions will be given for both of these medications. Patient has a follow-up appointment scheduled in [facility] at [facility] on January 18. Patient was advised to be compliant with medications and follow-up appointments and to avoid all alcohol and drugs. Patient Condition at Discharge: Stable Plan - Discharge Summary Discharge Rx Participant: No New Discharge Prescriptions: New Paliperidone IM [Invega Sustenna] 234 mg IM QMONTH #1 syr hydrOXYzine PAMOATE [Vistaril] 25 mg PO BID #30 cap Discontinued clonazePAM [KlonoPIN] 0.5 mg PO BID cloZAPine [Clozapine Odt] 150 mg PO BID Haloperidol [Haldol] 2.5 mg PO DAILY Invega Sustenna(Unknown) 1 dose IM DIRECTED Discharge Medication List Paliperidone IM [Invega Sustenna] 234 mg IM QMONTH #1 syr 01/13/19 [Rx] hydrOXYzine PAMOATE [Vistaril] 25 mg PO BID #30 cap 01/13/19 [Rx] Follow up Appointment(s)/Referral(s): [facility] [Other] - 01/18/19 9:00 am (Intake insurance is showing not active fee will be 125.00 per visit unless insurance is upated ) None,Stated [Primary Care Provider] - 1-2 days Patient Instructions/Handouts: Schizoaffective Disorder (DC), Psychiatric Hallucinations (DC), Psychotic Disorder (DC) Activity/Diet/Wound Care/Special Instructions: Activity and diet as tolerated. No guns or weapons in the home. Refrain from alcohol and street drugs that are not prescribed by your physician. TAke all medications as prescribed, and attend all follow up appointments as scheduled. If in need of medication refills, please go to your primary care physician, or to your out patient psychiatric provider. If in crisis, please call , or go to the nearest ER. Discharge Disposition: HOME SELF-CARE
== END 2019-01-13 14:15 | disposition home or self-care (01) | DRG 885 ==
LOC: EC 20:07 → 3MHU 01-07 05:22
PROVIDERS: ADMIT Psychiatry & Neurology Psychiatry; ATTEND Psychiatry & Neurology Psychiatry
DX: F20.9 Schizophrenia, unspecified (principal); F41.9 Anxiety disorder, unspecified; F39 Unspecified mood [affective] disorder; R13.10 Dysphagia, unspecified; F17.200 Nicotine dependence, unspecified, uncomplicated; Z91.14 Patient's other noncompliance with medication regimen; Z88.8 Allergy status to other drugs, medicaments and biological substances; Z98.890 Other specified postprocedural states
CPT/HCPCS: 36415; 70450; 80053; 80061; 80173; 80306; 80329; 81003; 81025; 82009; 82075; 83036; 83520; 83605; 84443; 85025; 93005; 96360; 96361; 99285